=== PATIENT | female | born 1955 | race Caucasian/White ===

== ENCOUNTER → 2019-02-05 | Outpatient (CLI) | payer OTHER ==
--- NOTE | 2019-02-06 08:57 | RAD ---
EXAM DESCRIPTION: Chest,2 Views CLINICAL HISTORY: COUGH COMPARISON: None TECHNIQUE: PA/lateral FINDINGS: Prominent spurring in the T-spine. Patchy infiltrate in the right mid and lower lung zones. This suggests mild pneumonia Heart size is normal with normal pulmonary vascularity. No pleural effusion or pneumothorax. Lungs are clear with no consolidating infiltrate. Lateral view shows intact sternum and T-spine. IMPRESSION: Patchy infiltrate in the mid and lower right lung zones most consistent with pneumonia. Electronically signed by: Mor Briones MD 02/06/2019 8:56 AM [facility]
== END ==
LOC: RAD 15:56
PROVIDERS: ATTEND Nurse Practitioner
DX: R05 Cough (principal); R91.8 Other nonspecific abnormal finding of lung field